=== PATIENT | female | born 1990 | race Two or more races ===

== ENCOUNTER 2021-05-15 20:53 | Emergency (ER) | payer SELFPAY ==
[~2021-05-15] VITALS: Ht 162.6 cm; Wt 63.6 kg
[2021-05-15 21:30] LABS: BILIRUBIN,URINE NEGATIVE (NEG); CLARITY,URINE CLEAR; COLOR,URINE YELLOW; NITRITE,URINE NEGATIVE (NEG); PROTEIN,URINE NEGATIVE (NEG-TRACE); UROBILINOGEN,URINE 0.2 mg/dL (0.2 mg/dL)
[2021-05-15] MEDS ORDERED: ONDANSETRON PF 4 MG/2 ML VIAL. IVP ONE (22:00)
[2021-05-15 22:26] LABS: BASO # 0.1 x10^3/uL (0.0-0.2); BASO % 1 % (0-3); EOS # 0.1 x10^3/uL (0.0-0.7); EOS % 1 % (0-3); HEMATOCRIT 34.2 % (36.0-47.0); HEMOGLOBIN 11.5 g/dL (12.0-15.5); LYMPH % 23 % (24-48); MEAN CORPUSCULAR HEMOGLOBIN 27 pg (25-35); MEAN CORPUSCULAR HGB CONC 34 g/dL (31-37); MEAN CORPUSCULAR VOLUME 80 fL (79-100); MONO # 0.6 x10^3/uL (0.0-1.1); MONO % 7 % (0-9); NEUT # 5.8 x10^3/uL (1.8-7.7); NEUT % 68 % (31-73); PLATELET COUNT 363 x10^3/uL (140-400); RED BLOOD COUNT 4.29 x10^6/uL (3.50-5.40); RED CELL DISTRIBUTION WIDTH 14.2 % (11.5-14.5); WHITE BLOOD COUNT 8.5 x10^3/uL (4.0-11.0)
[2021-05-15 22:29] LABS: BACTERIA,URINE MANY /HPF (0-FEW); RBC,URINE 0 /HPF (0-2)
[2021-05-15] MEDS ORDERED: IV NORMAL SALINE 1000ML BAG 1,000 ML IV ONE (22:30)
[2021-05-15 22:35] LABS: CALCIUM 8.6 mg/dL (8.5-10.1); CREATININE 0.7 mg/dL (0.6-1.0); GFR 98.9; POTASSIUM 3.8 mmol/L (3.5-5.1)
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
--- NOTE | 2021-05-16 00:04 | RAD ---
US OB TRANSVAGINAL History: Abdominal pain in abdominal pain in Comparison: None. Technique: Sonographic examination of the pelvis was performed with transvaginal technique. Findings: The uterus is normal in size and echogenicity, measuring 7.9 x 7.0 x 5.3 cm. The uterus contains a single gestational sac with normal shape. A pole is identified with crown -rump length measuring 0.58 cm, corresponding to a gestational age of 6 weeks 3 days. There is a small perigestational hemorrhage measuring less than 25 percent of the sac circumference. The heart rate measures 115. The right ovary is normal in size and echogenicity, measuring 1.7 x 2.8 x 1.5 cm. The left ovary is normal in size and echogenicity, measuring 3.0 x 1.9 x 2.0 cm. There is no evidence of adnexal mass or free fluid. Impression: 1. Single live intrauterine gestation with crown-rump length corresponding to a gestational age of 6 weeks 3 days. 2. Small perigestational hemorrhage measuring less than 25 percent of the gestational sac circumfere nce. Electronically signed by: George Stevens MD (05/16/2021 12:02 AM) [id number]
[2021-05-16] MEDS ORDERED: METR-34 PO (00:32)
[2021-05-16] MEDS ORDERED: PNV1TABL25 PO (00:32)
[2021-05-16 00:50] VITALS: BP 92/54
[2021-05-18 08:18] LABS: GC PROBE Negative (Negative)
== END 2021-05-16 01:20 | disposition home or self-care (01) ==
LOC: ER 20:53
DX: O20.0 Threatened abortion (principal); O41.8X10 Other specified disorders of amniotic fluid and membranes, first trimester, not applicable or unspecified; O23.591 Infection of other part of genital tract in pregnancy, first trimester; B96.89 Other specified bacterial agents as the cause of diseases classified elsewhere; Z87.891 Personal history of nicotine dependence; Z3A.01 Less than 8 weeks gestation of pregnancy
CPT/HCPCS: 76817; 80048; 81001; 81025; 84702; 85025; 87086; 87491; 87591; 96361; 96374; 99285; J2405; J7030; Q0111

== ENCOUNTER 2021-07-09 17:57 | Emergency (ER) | payer SELFPAY ==
[~2021-07-09] VITALS: Ht 162.6 cm; Wt 80.0 kg
[~2021-07-09 17:57] MED LIST: METR-34 PO; PNV1TABL25 PO
[2021-07-09 18:11] LABS: BILIRUBIN,URINE NEGATIVE (NEG); CLARITY,URINE CLEAR; COLOR,URINE YELLOW; NITRITE,URINE NEGATIVE (NEG); PROTEIN,URINE NEGATIVE (NEG-TRACE); UROBILINOGEN,URINE 0.2 mg/dL (0.2 mg/dL)
[2021-07-09 18:27] LABS: BACTERIA,URINE MANY /HPF (0-FEW)
[2021-07-09] MEDS ORDERED: IV NORMAL SALINE 1000ML BAG 1,000 ML IV ONE (18:30)
[2021-07-09] MEDS ORDERED: ONDANSETRON PF 4 MG/2 ML VIAL. IVP ONE (18:30)
[2021-07-09] MEDS ORDERED: ACETAMINOPHEN 500 MG TABLET PO ONE (18:30)
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
[2021-07-09 18:39] LABS: BASO % 0 % (0-3); EOS % 1 % (0-3); HEMATOCRIT 34.3 % (36.0-47.0); HEMOGLOBIN 11.7 g/dL (12.0-15.5); LYMPH # 0.4 x10^3/uL (1.0-4.8); LYMPH % 7 % (24-48); MEAN CORPUSCULAR HEMOGLOBIN 27 pg (25-35); MEAN CORPUSCULAR HGB CONC 34 g/dL (31-37); MEAN CORPUSCULAR VOLUME 80 fL (79-100); MONO # 0.4 x10^3/uL (0.0-1.1); MONO % 7 % (0-9); NEUT # 5.3 x10^3/uL (1.8-7.7); NEUT % 86 % (31-73); PLATELET COUNT 301 x10^3/uL (140-400); RED CELL DISTRIBUTION WIDTH 14.8 % (11.5-14.5); WHITE BLOOD COUNT 6.2 x10^3/uL (4.0-11.0)
[2021-07-09] MEDS ORDERED: cefTRIAXone IV Push 1 GM VIAL. IVP ONE (18:45)
[2021-07-09 18:57] LABS: CALCIUM 8.8 mg/dL (8.5-10.1); CREATININE 0.5 mg/dL (0.6-1.0); GFR 145.9; POTASSIUM 3.5 mmol/L (3.5-5.1)
[2021-07-09 19:06] LABS: ALBUMIN 3.2 g/dL (3.4-5.0); ALBUMIN/GLOBULIN RATIO 0.7 (1.0-1.7); TOTAL BILIRUBIN 0.3 mg/dL (0.2-1.0); TOTAL PROTEIN 7.6 g/dL (6.4-8.2)
--- NOTE | 2021-07-09 21:32 | RAD ---
Obstetric ultrasound limited: Reason for examination: Abdominal pain with . COMPARISON: 05/15/2021. TECHNIQUE: Limited transabdominal ultrasound of the uterus was performed. FINDINGS: NUMBER: Single POSITION: Variable PLACENTA: Location: Anterior Placentation: Normal. Cord insertion: Normal. Cord type: 3 vessel cord. ANATOMY: HEART RATE: 175 COMMENTS: None Current measurements are: BPD - 2.9 cm = 15 weeks 2 days HC -11.1 cm = 15 weeks 3 days AC - 8.9 cm = 15 weeks 1 day FL - 1.54 cm = 14 weeks 4 days MATERNAL ANATOMY CERVIX Length (cm): The cervix is poorly visualized but appears to be closed UTERUS: No abnormalities seen. Placenta appears normal without appreciable hemorrhage. OVARIES/ADNEXAE: No masses seen. CUL-DE-SAC: No fluid. HISTORICAL DATES Last menstrual period: 04/13/2021 CALCULATED DATES SURAJ (LMP): 01/18/2022 EGA (US): 15 weeks 1 day SURAJ (US): 12/30/2021 IMPRESSION: Single viable intrauterine gestation with mean gestational age is estimated at 15 weeks 1 day with es timated date of confinement of 12/30/2021. This is ahead of the clinical dates. No focal abnormal ity seen. Electronically signed by: Shannon Underwood MD (07/09/2021 9:30 PM) SINGH
[2021-07-09] MEDS ORDERED: CEPH500C PO (21:48)
[2021-07-09 22:03] VITALS: BP 91/55
== END 2021-07-09 22:11 | disposition home or self-care (01) ==
LOC: ER 17:57
DX: O23.42 Unspecified infection of urinary tract in pregnancy, second trimester (principal); Z3A.15 15 weeks gestation of pregnancy; Z87.891 Personal history of nicotine dependence
CPT/HCPCS: 36415; 76815; 80053; 81001; 81025; 84702; 85025; 86850; 86900; 86901; 87077; 87086; 87186; 87491; 87591; 96361; 96374; 96375; 99285; J0696; J2405; J7030

== ENCOUNTER 2021-09-17 11:43 | Observation (INO) | payer SELFPAY ==
[~2021-09-17] VITALS: Ht 165.1 cm; Wt 90.9 kg
[~2021-09-17 11:43] MED LIST changes: +CEPH500C PO
[2021-09-17 12:56] LABS: RBC,URINE OCC /HPF (0-2)
[2021-09-17 12:57] LABS: BACTERIA,URINE MANY /HPF (0-FEW)
[2021-09-17] MEDS: IV RINGERS,LACTATED 1000ML 1,000 ML IV PRN ×2 (13:20→19:29)
[2021-09-17 14:11] LABS: CALCIUM 8.5 mg/dL (8.5-10.1); CREATININE 0.5 mg/dL (0.6-1.0); GFR 145.9; POTASSIUM 3.6 mmol/L (3.5-5.1)
[2021-09-17 14:18] LABS: BASO % 0 % (0-3); EOS % 0 % (0-3); HEMATOCRIT 30.6 % (36.0-47.0); HEMOGLOBIN 10.2 g/dL (12.0-15.5); LYMPH # 1.1 x10^3/uL (1.0-4.8); LYMPH % 9 % (24-48); MEAN CORPUSCULAR HEMOGLOBIN 27 pg (25-35); MEAN CORPUSCULAR HGB CONC 33 g/dL (31-37); MEAN CORPUSCULAR VOLUME 83 fL (79-100); MONO # 1.1 x10^3/uL (0.0-1.1); MONO % 9 % (0-9); NEUT # 9.9 x10^3/uL (1.8-7.7); NEUT % 81 % (31-73); PLATELET COUNT 244 x10^3/uL (140-400); RED BLOOD COUNT 3.71 x10^6/uL (3.50-5.40); RED CELL DISTRIBUTION WIDTH 14.7 % (11.5-14.5); WHITE BLOOD COUNT 12.2 x10^3/uL (4.0-11.0)
[2021-09-17] MEDS ORDERED: BUTORPHANOL 2 MG/ML VIAL. IV ONE (16:00)
[2021-09-17] MEDS: cefTRIAXone IV Push 1 GM VIAL. IVP SCH (16:24)
[2021-09-17] MEDS ORDERED: ONDANSETRON PF 4 MG/2 ML VIAL. IVP PRN (16:45)
--- NOTE | 2021-09-17 19:21 | PDOC1 ---
ASSISTANT MEDIA BUYER H&P Date of Admission: Date of Admission: Sep 17, 2021 at 11:43 History of Present Illness: EDC: 01/07/22 LMP: 04/02/21 30y @ 24.0 by L=9 who presents to L&D with dysuria, cramping and back pain. She feels that it began . She feels that the pain has gotten no better since that time. She reports a fever yesterday. On L&D she was found to be AF. Her urine was suspicious for an infection. She was noted to have an elevated WBC with a left shift. She recently completed a course of abx for an Ucx positive for bacteria. PMH: Denies PSH: Appy, ectopic (right salpingectomy) Meds: PNV All: NKDA OBHx: 2 x TSVD, 1 x ectopic SH: no tob, no EtOH FH: noncontributory Medications: Meds: Current Medications Medications (Trade) Dose Ordered Sig/Nkechi Route PRN Reason Start Time Stop Time Status Last Admin Dose Admin Ringer's Solution 1,000 ml @ 125 mls/hr Q8H PRN IV PER PROTOCOL 09/17/21 12:15 09/17/21 13:20 Ceftriaxone Sodium (Rocephin) 1 gm Q24H IVP 09/17/21 15:00 09/17/21 16:24 Butorphanol Tartrate (Stadol) 1 mg 1X ONCE IV 09/17/21 16:00 09/17/21 16:01 DC 09/17/21 16:25 Ondansetron HCl (Zofran) 4 mg PRN Q6HRS PRN IVP NAUSEA/VOMITING 09/17/21 16:45 09/17/21 16:39 Allergies: Coded Allergies: No Known Drug Allergies (Unverified , 07/09/21) Physical Exam: Vital Signs: Vital Signs Date Time Temp Pulse Resp B/P (MAP) Pulse Ox O2 Delivery O2 Flow Rate FiO2 09/17/21 17:35 Room Air 09/17/21 16:25 18 09/17/21 12:10 97.9 99 97.9 PE: GENERAL: No apparent distress. Alert and oriented. HEENT: Head normocephalic, atraumatic. NECK: Supple LUNGS: Clear to auscultation. HEART: RRR, S1, S2 present, pulses intact ABDOMEN: Soft, positive bowel sounds. EXTREMITIES: No cyanosis or edema. NEUROLOGIC: Normal speech, normal tone PSYCHIATRIC: Normal affect, normal mood. SKIN: No ulceration. FHT: 150's +acels/no decels/mLTV [place]: quiet SVE: cl/Th/H Labs: Laboratory Tests Test 09/17/21 12:07 09/17/21 13:31 Urine Collection Type Unknown Urine Color (Auto) Colorless Urine Turbidity Hazy Urine pH (Auto) 6.5 (<5.0-8.0) Urine Specific Lindsay 1.007 (1.000-1.030) Urine Protein (Auto) Negative mg/dL (Negative) Urine Glucose (Auto)(UA) Negative mg/dL (Negative) Urine Ketones (Auto) Negative mg/dL (Negative) Urine Blood (Auto) Negative (Negative) Urine Nitrite Negative (Negative) Urine Bilirubin (Auto) Negative (Negative) Urine Urobilinogen (Auto) Normal mg/dL (Normal) Urine Leukocyte Esterase (Auto) Moderate (Negative) Urine RBC Occ /HPF (0-2) Urine WBC 11-20 /HPF (0-4) Urine Squamous Epithelial Cells Mod /LPF Urine Bacteria Many /HPF (0-FEW) White Blood Count 12.2 x10^3/uL (4.0-11.0) H Red Blood Count 3.71 x10^6/uL (3.50-5.40) Hemoglobin 10.2 g/dL (12.0-15.5) L Hematocrit 30.6 % (36.0-47.0) L Mean Corpuscular Volume 83 fL (79-100) Mean Corpuscular Hemoglobin 27 pg (25-35) Mean Corpuscular Hemoglobin Concent 33 g/dL (31-37) Red Cell Distribution Width 14.7 % (11.5-14.5) H Platelet Count 244 x10^3/uL (140-400) Neutrophils (%) (Auto) 81 % (31-73) H Lymphocytes (%) (Auto) 9 % (24-48) L Monocytes (%) (Auto) 9 % (0-9) Eosinophils (%) (Auto) 0 % (0-3) Basophils (%) (Auto) 0 % (0-3) Neutrophils # (Auto) 9.9 x10^3/uL (1.8-7.7) H Lymphocytes # (Auto) 1.1 x10^3/uL (1.0-4.8) Monocytes # (Auto) 1.1 x10^3/uL (0.0-1.1) Eosinophils # (Auto) 0.0 x10^3/uL (0.0-0.7) Basophils # (Auto) 0.0 x10^3/uL (0.0-0.2) Sodium Level 136 mmol/L (136-145) Potassium Level 3.6 mmol/L (3.5-5.1) Chloride Level 102 mmol/L (98-107) Carbon Dioxide Level 24 mmol/L (21-32) Anion Gap 10 (6-14) Blood Urea Nitrogen 4 mg/dL (7-20) L Creatinine 0.5 mg/dL (0.6-1.0) L Estimated GFR (Cockcroft-Gault) 145.9 Glucose Level 78 mg/dL (70-99) Calcium Level 8.5 mg/dL (8.5-10.1) Laboratory Tests 09/17/21 13:31 Laboratory Tests 09/17/21 13:31 Laboratory Tests 09/17/21 13:31 Assessment & Plan: A/P 30y @ 24.0 by L=9 1.) Pyleonephritis will start Rocpehin 2.) N/V Zofran prn 3.) RPR pos TP Ab neg 4.) Fetus cat I FHT 5.) GBS unk not in labor HUONG PATEL MD Sep 17, 2021 19:21
[2021-09-17 19:25] VITALS: BP 97/51
[2021-09-17 20:00] VITALS: BP 95/55
[2021-09-17] MEDS ORDERED: oxyCODONE/APAP 5/325 1 TAB TABLET PO PRN (20:00)
[2021-09-17] MEDS: oxyCODONE/APAP 5/325 1 TAB TABLET PO PRN (20:15)
[2021-09-18] VITALS (7 sets, daily range): BP systolic 77–93; BP diastolic 43–56
[2021-09-18 10:24] LABS: BASO % 1 % (0-3); EOS # 0.1 x10^3/uL (0.0-0.7); EOS % 1 % (0-3); HEMATOCRIT 30.4 % (36.0-47.0); HEMOGLOBIN 9.8 g/dL (12.0-15.5); LYMPH # 1.8 x10^3/uL (1.0-4.8); LYMPH % 19 % (24-48); MEAN CORPUSCULAR HEMOGLOBIN 27 pg (25-35); MEAN CORPUSCULAR HGB CONC 32 g/dL (31-37); MEAN CORPUSCULAR VOLUME 85 fL (79-100); MONO # 0.7 x10^3/uL (0.0-1.1); MONO % 8 % (0-9); NEUT % 72 % (31-73); PLATELET COUNT 237 x10^3/uL (140-400); RED BLOOD COUNT 3.59 x10^6/uL (3.50-5.40); WHITE BLOOD COUNT 9.7 x10^3/uL (4.0-11.0)
--- NOTE | 2021-09-18 11:39 | PDOC ---
PARTNER MARKETING INTERN PROGRESS NOTE Date of Service: DATE: 09/18/21 TIME: 11:38 Subjective: Pt feels better. Reports some upper back pain bilaterally Objective: Vital Signs: Vital Signs Date Time Temp Pulse Resp B/P (MAP) Pulse Ox O2 Delivery O2 Flow Rate FiO2 09/17/21 12:10 97.9 99 18 Room Air 97.9 09/17/21 20:00 98 Vital Signs Date Time Temp Pulse Resp B/P (MAP) Pulse Ox O2 Delivery O2 Flow Rate FiO2 09/18/21 07:18 97.8 78 18 85/50 (62) Room Air 97.8 09/18/21 04:51 98 Labs: Laboratory Tests Test 09/17/21 12:07 09/17/21 13:31 09/18/21 01:45 Urine Collection Type Unknown Urine Color (Auto) Colorless Urine Turbidity Hazy Urine pH (Auto) 6.5 (<5.0-8.0) Urine Specific Leo 1.007 (1.000-1.030) Urine Protein (Auto) Negative mg/dL (Negative) Urine Glucose (Auto)(UA) Negative mg/dL (Negative) Urine Ketones (Auto) Negative mg/dL (Negative) Urine Blood (Auto) Negative (Negative) Urine Nitrite Negative (Negative) Urine Bilirubin (Auto) Negative (Negative) Urine Urobilinogen (Auto) Normal mg/dL (Normal) Urine Leukocyte Esterase (Auto) Moderate (Negative) Urine RBC Occ /HPF (0-2) Urine WBC 11-20 /HPF (0-4) Urine Squamous Epithelial Cells Mod /LPF Urine Bacteria Many /HPF (0-FEW) White Blood Count 12.2 x10^3/uL (4.0-11.0) H 9.7 x10^3/uL (4.0-11.0) Red Blood Count 3.71 x10^6/uL (3.50-5.40) 3.59 x10^6/uL (3.50-5.40) Hemoglobin 10.2 g/dL (12.0-15.5) L 9.8 g/dL (12.0-15.5) L Hematocrit 30.6 % (36.0-47.0) L 30.4 % (36.0-47.0) L Mean Corpuscular Volume 83 fL (79-100) 85 fL (79-100) Mean Corpuscular Hemoglobin 27 pg (25-35) 27 pg (25-35) Mean Corpuscular Hemoglobin Concent 33 g/dL (31-37) 32 g/dL (31-37) Red Cell Distribution Width 14.7 % (11.5-14.5) H 15.0 % (11.5-14.5) H Platelet Count 244 x10^3/uL (140-400) 237 x10^3/uL (140-400) Neutrophils (%) (Auto) 81 % (31-73) H 72 % (31-73) Lymphocytes (%) (Auto) 9 % (24-48) L 19 % (24-48) L Monocytes (%) (Auto) 9 % (0-9) 8 % (0-9) Eosinophils (%) (Auto) 0 % (0-3) 1 % (0-3) Basophils (%) (Auto) 0 % (0-3) 1 % (0-3) Neutrophils # (Auto) 9.9 x10^3/uL (1.8-7.7) H 7.0 x10^3/uL (1.8-7.7) Lymphocytes # (Auto) 1.1 x10^3/uL (1.0-4.8) 1.8 x10^3/uL (1.0-4.8) Monocytes # (Auto) 1.1 x10^3/uL (0.0-1.1) 0.7 x10^3/uL (0.0-1.1) Eosinophils # (Auto) 0.0 x10^3/uL (0.0-0.7) 0.1 x10^3/uL (0.0-0.7) Basophils # (Auto) 0.0 x10^3/uL (0.0-0.2) 0.0 x10^3/uL (0.0-0.2) Sodium Level 136 mmol/L (136-145) Potassium Level 3.6 mmol/L (3.5-5.1) Chloride Level 102 mmol/L (98-107) Carbon Dioxide Level 24 mmol/L (21-32) Anion Gap 10 (6-14) Blood Urea Nitrogen 4 mg/dL (7-20) L Creatinine 0.5 mg/dL (0.6-1.0) L Estimated GFR (Cockcroft-Gault) 145.9 Glucose Level 78 mg/dL (70-99) Calcium Level 8.5 mg/dL (8.5-10.1) Platelet Estimate Pending Lactic Acid Level 0.6 mmol/L (0.4-2.0) Laboratory Tests 09/17/21 13:31 09/18/21 01:45 Laboratory Tests 09/17/21 13:31 Laboratory Tests 09/17/21 13:31 09/18/21 01:45 Physical Exam: GENERAL: No apparent distress. Alert and oriented. HEENT: Head normocephalic, atraumatic. NECK: Supple LUNGS: Clear to auscultation. HEART: RRR, S1, S2 present, pulses intact ABDOMEN: Soft, positive bowel sounds. EXTREMITIES: No cyanosis or edema. NEUROLOGIC: Normal speech, normal tone PSYCHIATRIC: Normal affect, normal mood. SKIN: No ulceration. Assessment & Plan: A/P 30y @ 24.1 by L=9 1.) Pyleonephritis on Rocpehin (1623), remains AF. WBC 12.2 -> 9.7 (now w/o left shift). Ucx pending. 2.) N/V improved, Zofran prn 3.) RPR pos TP Ab neg 4.) Fetus cat I FHT 5.) GBS unk not in labor 6.) Disp may d/c tomorrow depending on Ucx results HUONG PATEL MD Sep 18, 2021 11:39
[2021-09-18 12:34] LABS: % BANDS 31 % (0-9); % LYMPHS 19 % (24-48); % MONOS 3 % (0-10); % SEGS 47 % (35-66); PLT ESTIMATE ADEQUATE (ADEQUATE)
[2021-09-18 12:36] LABS: ANISOCYTOSIS SLIGHT
[2021-09-18] MEDS: LACTOBACILLUS RHAMNOSUS GG 1 CAPSULE. PO SCH (16:16)
[2021-09-18] MEDS: cefTRIAXone IV Push 1 GM VIAL. IVP SCH (16:16)
[2021-09-19 06:52] VITALS: BP 93/52
[2021-09-19] MEDS: LACTOBACILLUS RHAMNOSUS GG 1 CAPSULE. PO SCH (08:24)
[2021-09-19] MEDS: oxyCODONE/APAP 5/325 1 TAB TABLET PO PRN (08:29)
[2021-09-19 08:30] VITALS: BP 92/56
[2021-09-19 08:38] LABS: BASO % 0 % (0-3); EOS # 0.1 x10^3/uL (0.0-0.7); EOS % 1 % (0-3); HEMATOCRIT 31.2 % (36.0-47.0); HEMOGLOBIN 10.2 g/dL (12.0-15.5); LYMPH % 18 % (24-48); MEAN CORPUSCULAR HEMOGLOBIN 27 pg (25-35); MEAN CORPUSCULAR HGB CONC 33 g/dL (31-37); MEAN CORPUSCULAR VOLUME 82 fL (79-100); MONO # 0.4 x10^3/uL (0.0-1.1); MONO % 7 % (0-9); NEUT # 4.1 x10^3/uL (1.8-7.7); NEUT % 74 % (31-73); PLATELET COUNT 290 x10^3/uL (140-400); RED BLOOD COUNT 3.79 x10^6/uL (3.50-5.40); RED CELL DISTRIBUTION WIDTH 14.8 % (11.5-14.5); WHITE BLOOD COUNT 5.6 x10^3/uL (4.0-11.0)
[2021-09-19] MEDS ORDERED: CEPHALEXIN 250 MG CAPSULE. PO SCH (09:00)
[2021-09-19] MEDS ORDERED: CEPH500C PO (09:14)
--- NOTE | 2021-09-19 11:46 | PDOC ---
RENTAL CAR PORTER PROGRESS NOTE Date of Service: DATE: 09/19/21 TIME: 11:46 Subjective: Pt feels better. Reports some upper back pain bilaterally Objective: Vital Signs: Vital Signs Date Time Temp Pulse Resp B/P (MAP) Pulse Ox O2 Delivery O2 Flow Rate FiO2 09/18/21 07:18 97.8 78 18 85/50 (62) Room Air 97.8 09/19/21 06:52 98 Vital Signs Date Time Temp Pulse Resp B/P (MAP) Pulse Ox O2 Delivery O2 Flow Rate FiO2 09/19/21 08:30 98.9 81 20 92/56 (68) 98.9 09/19/21 06:52 98 Room Air Labs: Laboratory Tests Test 09/19/21 08:20 White Blood Count 5.6 x10^3/uL (4.0-11.0) Red Blood Count 3.79 x10^6/uL (3.50-5.40) Hemoglobin 10.2 g/dL (12.0-15.5) L Hematocrit 31.2 % (36.0-47.0) L Mean Corpuscular Volume 82 fL (79-100) Mean Corpuscular Hemoglobin 27 pg (25-35) Mean Corpuscular Hemoglobin Concent 33 g/dL (31-37) Red Cell Distribution Width 14.8 % (11.5-14.5) H Platelet Count 290 x10^3/uL (140-400) Neutrophils (%) (Auto) 74 % (31-73) H Lymphocytes (%) (Auto) 18 % (24-48) L Monocytes (%) (Auto) 7 % (0-9) Eosinophils (%) (Auto) 1 % (0-3) Basophils (%) (Auto) 0 % (0-3) Neutrophils # (Auto) 4.1 x10^3/uL (1.8-7.7) Lymphocytes # (Auto) 1.0 x10^3/uL (1.0-4.8) Monocytes # (Auto) 0.4 x10^3/uL (0.0-1.1) Eosinophils # (Auto) 0.1 x10^3/uL (0.0-0.7) Basophils # (Auto) 0.0 x10^3/uL (0.0-0.2) Laboratory Tests 09/19/21 08:20 Laboratory Tests 09/19/21 08:20 Physical Exam: GENERAL: No apparent distress. Alert and oriented. HEENT: Head normocephalic, atraumatic. NECK: Supple LUNGS: Clear to auscultation. HEART: RRR, S1, S2 present, pulses intact ABDOMEN: Soft, positive bowel sounds. EXTREMITIES: No cyanosis or edema. NEUROLOGIC: Normal speech, normal tone PSYCHIATRIC: Normal affect, normal mood. SKIN: No ulceration. Assessment & Plan: A/P 30y @ 24.2 by L=9 1.) Pyelonephritis on Rocpehin x 2 (1624), remains AF. Will switch to a and d/c pt on Keflex. WBC 12.2 -> 9.7 -> 5.6. Ucx pending. 2.) N/V improved, Zofran prn 3.) RPR pos TP Ab neg 4.) Fetus cat I FHT 5.) GBS unk not in labor 6.) D/c today HUONG PATEL MD Sep 19, 2021 11:46
--- NOTE | 2021-09-19 13:25 | NUR ---
Pt dismissed ambulatory in stable condition accompanied by .
--- NOTE | 2021-09-19 15:45 | DS ---
DATE OF DISCHARGE: 09/19/2021 ADMISSION DIAGNOSES: 1. Intrauterine at 24 weeks and 0 days by LMP equal to a 9-week ultrasound. 2. Pyelonephritis. 3. Nausea and vomiting. 4. RPR positive with negative treponema pallidum antibody. 5. GBS unknown. DISCHARGE DIAGNOSES: 1. Intrauterine at 24 weeks and 0 days by LMP equal to a 9-week ultrasound. 2. Pyelonephritis. 3. Nausea and vomiting. 4. RPR positive with negative treponema pallidum antibody. 5. GBS unknown. PROCEDURE: None. BRIEF HOSPITAL COURSE: The patient is a 30-year-old 4, para 2-0-1-2, presented to Labor and Delivery at 24 weeks and 0 days by LMP equal to a 9-week ultrasound with the severe cramping and back pain. The patient reported that began . The patient was seen in the office and nothing had improved since that time. The patient reported the day prior to admission that she had a fever. When the patient arrived to Labor and Delivery, she was found to be afebrile. Her urine was suspicious for infection and with an elevated white count, was subsequently admitted. The patient was noted to have CVA tenderness, so she was admitted for suspected pyelonephritis. The patient was started on Rocephin, which she received for her first 2 hospital days. On hospital day #3, the patient was converted to Keflex. Also around that time, the urine culture returned back positive for E. coli. The patient remained afebrile throughout her hospital course. Her white count, which began at 12.2, decreased to 9.7 on hospital day #1 and decreased to 5.6 on hospital day #2. Once the patient met all discharge criteria, she was subsequently discharged home. DISCHARGE INSTRUCTIONS: The patient was told not to lift anything greater than 20 pounds. CALL IF: The patient was to call if she had fevers, chills, nausea, vomiting, abdominal pain, back pain or any additional questions or concerns. FOLLOWUP APPOINTMENT: The patient was to follow up on 09/22/2021 at 1:20 p.m. for a return OB visit and a hospital followup. DISCHARGE MEDICATIONS: The patient was given a prescription for Keflex 500 mg, [address]: Phylicia TID: [id number]
== END 2021-09-19 13:25 | disposition home or self-care (01) ==
LOC: 3 SO LND 11:43
PROVIDERS: ADMIT Obstetrics & Gynecology; ATTEND Obstetrics & Gynecology
DX: O23.02 Infections of kidney in pregnancy, second trimester (principal); N12 Tubulo-interstitial nephritis, not specified as acute or chronic; O21.2 Late vomiting of pregnancy; O62.9 Abnormality of forces of labor, unspecified; Z3A.24 24 weeks gestation of pregnancy; Z90.49 Acquired absence of other specified parts of digestive tract; Z79.899 Other long term (current) drug therapy; Z98.890 Other specified postprocedural states
CPT/HCPCS: 36415; 80048; 81001; 83605; 85007; 85025; 87040; 87077; 87086; 87186; 96361; 96374; 96375; 96376; G0378; G0379; J0595; J0696; J2405; J7120